=== PATIENT | male | born 2000 | race Caucasian/White ===

== ENCOUNTER 2025-09-02 12:24 | Emergency (ER) | payer SELFPAY ==
[2025-09-02 13:30] LABS: Bacteria/HPF 2+ HPF (None Seen); CAUTI Indications for Culture Dysuria,urgency,freq; Glucose, Urine (Dipstick) Greater than 1000 mg/dL (Negative); Leukocyte 250 Leu/uL (Negative); Protein, Urine (Dipstick) 50 mg/dL (Neg-Trace); RBC/HPF 0-3 HPF (0-3); Specific Gravity, Urine 1.041 (1.002-1.036); WBC/HPF Greater than 50 HPF (0-3)
[2025-09-02 13:34] LABS: Urine Culture Reflex Yes Yes
[2025-09-02] MEDS ORDERED: cefTRIAXone (ROCEPHIN) 500 MG VIAL ONE (14:59)
[2025-09-03 01:25] LABS: Chlam.trachomatis by PCR,Urine Not Detected (NotDetected); GC N.gonorrhoeae PCR,UrineVOID Not Detected (NotDetected)
== END 2025-09-02 15:03 | disposition home or self-care (01) ==
LOC: ERS 12:24
DX: N50.812 Left testicular pain (principal); N39.0 Urinary tract infection, site not specified
CPT/HCPCS: 76870; 81001; 87077; 87086; 87491; 87591; 93976; 96372; 99284; J0696